=== PATIENT | female | born 1970 | race Caucasian/White ===

== ENCOUNTER → 2017-04-20 | Outpatient (CLI) | payer OTHER ==
[~2017-04-20] MED LIST: NAPR500T PO; SSD1CRE TOPICAL
[2017-04-20 14:04] LABS: AUTOMATED NEUTROPHIL # 4.4 TH/MM3 (1.8-7.7); BASOPHIL # 0.1 TH/MM3 (0-0.2); BASOPHIL % 1.5 % (0.0-2.0); EOSINOPHIL # 0.3 TH/MM3 (0-0.4); EOSINOPHIL % 3.3 % (0.0-4.0); HEMATOCRIT 36.3 % (35.0-46.0); HEMO FLAGS DIFF FINAL; LYMPH % 32.4 % (9.0-44.0); LYMPHOCYTE # 2.6 TH/MM3 (1.0-4.8); MEAN CELL VOLUME 86.4 FL (80.0-100.0); MEAN CORPUSCULAR HEMOGLOBIN 30.4 PG (27.0-34.0); MEAN CORPUSCULAR HGB CONC 35.2 % (32.0-36.0); MONO % 7.4 % (0.0-8.0); NEUT % 55.4 % (16.0-70.0); PLATELET COUNT 476 TH/MM3 (150-450); RED BLOOD COUNT 4.19 MIL/MM3 (4.00-5.30); RED CELL DISTRIBUTION WIDTH 12.7 % (11.6-17.2)
[2017-04-20 14:15] LABS: BACTERIA, URINE RARE /hpf; BLOOD, URINE NEG (NEG); COMMENT (UR) CULT NOT INDICATED; CULTURE IF INDICATED CULT NOT INDICATED; GLUCOSE,URINE NEG (NEG); KETONE, URINE NEG (NEG); MUCUS URINE FEW /lpf (OCC); NITRITE,URINE NEG (NEG); PH, URINE 6.5 (5.0-8.5); SQUAMOUS EPITHELIAL CELL URINE 3 /hpf (0-5); URINE COLOR LIGHT-YELLOW (YELLW/STRAW)
[2017-04-20 14:36] LABS: BETA HCG QUANT LESS THAN 1 MIU/ML (0-5)
--- NOTE | 2017-04-21 12:27 | EKG ---
Date Performed: 04/20/2017 Time Performed: 13:28:45 PTAGE: 46 years EKG: Sinus rhythm WITH SHORT ID INTERVAL BORDERLINE ECG NO PREVIOUS TRACING DOCTOR: Osmar Valdes Interpretating Date/Time 04/21/2017 12:26:27
== END ==
LOC: CPRE 12:56
PROVIDERS: ATTEND Obstetrics & Gynecology
DX: Z01.812 Encounter for preprocedural laboratory examination (principal); Z01.810 Encounter for preprocedural cardiovascular examination; N92.1 Excessive and frequent menstruation with irregular cycle; N94.6 Dysmenorrhea, unspecified; N85.00 Endometrial hyperplasia, unspecified; R94.31 Abnormal electrocardiogram [ECG] [EKG]; Z85.3 Personal history of malignant neoplasm of breast
CPT/HCPCS: 36415; 81001; 84702; 85025; 93005

== ENCOUNTER 2017-04-22 10:49 | Observation (INO) | payer OTHER ==
--- NOTE | 2017-04-21 17:39 | MH ---
cc: FELA SHAFFER DATE OF ADMISSION 04/22/2017 ADMITTING DIAGNOSIS: Menorrhagia and dysmenorrhea. HISTORY OF PRESENT ILLNESS The patient is a 46-year-old white female, para 3-0-1-3 who returned for annual visit on November of 2016 increasing menstrual flow and menstrual discomfort. She had mammography in January of 2017 that demonstrated suspicious masses on the right breast x2. These were biopsied, positive for breast carcinoma and she underwent bilateral mastectomy on 04/06/2017 with planned reconstruction. In view of the menorrhagia and dysmenorrhea she had a pelvic ultrasound on 04/02/2017 which showed endometrial thickening to 17 mm, slightly enlarged uterus, ovaries appeared normal. Initial biopsy was attempted on 04/03/2017 but could not be done due to cervical stenosis. She is now admitted for surgical evaluation. PAST HISTORY Previous surgery: 1. She has a LEEP procedure for ALEX II in 1995 and follow up has been normal. 2. She had 1998 for failure to progress OP. Repeat in . She had a spontaneous 2003 at 7 weeks. No dilation and curettage required. 4. She had a third and final section in 2004. MEDICATIONS Include vitamins. ALLERGIES NONE. TRANSFUSIONS None. SOCIAL HISTORY She is . She is a long-term schoolteacher. Alcohol, tobacco and drugs are none. FAMILY HISTORY Noncontributory. PHYSICAL EXAMINATION GENERAL: This is a well-nourished, well-developed white female. VITAL SIGNS: Stable. HEENT: Normal. CHEST: Clear. HEART: Regular rate. BREASTS: Surgically absent. ABDOMEN: Benign. PELVIC: Normal external genitalia and Bartholin's, urethral, [place]'s. Vagina is normal. Cervix is normal. Uterus normal size. Adnexal nonpalpable. ASSESSMENT As above. PLAN She is now admitted for dilation and curettage, frozen section with planned laparoscopy, probable LASH bilateral salpingo-oophorectomy. While in the office I explained the procedures, the risks and benefits and complications. The patient would like to proceed. MD SELENA Crowell/DAVID /5:11 PM /5:29 PM
[~2017-04-22] VITALS: Ht 165.1 cm; Wt 67.7 kg
[~2017-04-22 10:49] MED LIST changes: -NAPR500T PO
[2017-04-22] MEDS ORDERED: NAPR500T PO (11:37)
[2017-04-22] MEDS ORDERED: ceFAZolin INJ 1,000 MG VIAL ONE (11:39)
[2017-04-22 11:40] VITALS: BP 110/69; PULSE 70; RESP 16; TEMP 98.7; O2SAT 98
[2017-04-22] MEDS ORDERED: SODIUM CHLORIDE 0.9% INJ 100 ML ONE (11:40)
[2017-04-22] MEDS ORDERED: ACETAMINOPHEN 1000 MG/100 ML VIAL IV ONE (11:46)
[2017-04-22] MEDS ORDERED: CHLORHEXIDINE GLUCONATE 2 % 1 PACK (2 CLOTHS) TOPICAL PRN (12:30)
[2017-04-22] MEDS ORDERED: INSULIN HUMAN REGULAR 1,000 UNITS/10 ML VIAL SQ PRN (12:30)
[2017-04-22] MEDS ORDERED: ACETAMINOPHEN 1000 MG/100 ML VIAL IV SCH (12:30)
[2017-04-22] MEDS ORDERED: SODIUM CHLORID 0.9% 500 ML IV PRN (12:30)
[2017-04-22] MEDS ORDERED: LACTATED RINGER'S 1000 ML IV PRN (12:30)
[2017-04-22] MEDS ORDERED: METOPROLOL TARTRATE 25 MG TAB PO PRN (12:30)
[2017-04-22] MEDS ORDERED: POVIDONE IODINE 5% (ANTISEPSIS KIT) 4 APPLICATIONS EACH NARE PRN (12:30)
[2017-04-22] MEDS ORDERED: DEXAMETHASONE SOD PHOS 4 MG/ML VIAL ONE (12:42)
[2017-04-22] MEDS ORDERED: MIDAZOLAM HCL 2 MG/2 ML VIAL ONE (12:42)
[2017-04-22] MEDS ORDERED: FAMOTIDINE 20 MG/2 ML VIAL ONE (12:42)
[2017-04-22] MEDS ORDERED: ceFAZolin 2 GM PREMIX 50 ML IV SCH (12:45)
[2017-04-22] MEDS ORDERED: PROPOFOL 200 MG/20 ML AMP IV ONE (12:45)
[2017-04-22] MEDS ORDERED: LACTATED RINGER'S 1000 ML INJ 1,000 ML IV ONE (12:45)
[2017-04-22] MEDS ORDERED: ONDANSETRON HCL 4 MG/2 ML VIAL IV PUSH ONE (12:45)
[2017-04-22] MEDS ORDERED: KETOROLAC TROMETHAMINE 60 MG/2 ML (IM) VIAL IM ONE (12:45)
[2017-04-22] MEDS ORDERED: NEOSTIGMINE 3 MG/3 ML SYR IV ONE (12:45)
[2017-04-22] MEDS ORDERED: SODIUM CHLORIDE 0.9% FLUSH 5 ML FLUSH FLUSH PRN (14:30)
[2017-04-22] MEDS ORDERED: PROMETHAZINE HCL 25 MG TAB PO PRN (14:30)
[2017-04-22] MEDS ORDERED: PROMETHAZINE INJ 25 MG/ML VIAL IM PRN (14:30)
[2017-04-22] MEDS ORDERED: HYDROmorphone HCL PF 1 MG/ML VIAL IV PRN (14:30)
[2017-04-22] MEDS ORDERED: ONDANSETRON ODT 4 MG TAB PO PRN (14:30)
[2017-04-22] MEDS ORDERED: DO NOT ADM ANY ANTICOAGULANT DRUGS PRN (14:50)
[2017-04-22] MEDS ORDERED: fentaNYL CITRATE 250 MCG/5 ML AMP ONE (14:57)
[2017-04-22] MEDS ORDERED: diphenhydrAMINE HCL 25 MG CAP PO PRN (15:00)
[2017-04-22] MEDS ORDERED: ZOLPIDEM TARTRATE 5 MG TAB PO PRN (15:00)
[2017-04-22] MEDS: D5-1/2 NS + KCL 20 MEQ INJ 1,000 ML IV SCH (15:00)
[2017-04-22] MEDS ORDERED: ONDANSETRON HCL 4 MG/2 ML VIAL IV PRN (15:00)
[2017-04-22] MEDS: KETOROLAC TROMETHAMINE 30 MG/ML (IVP) VIAL IVP SCH ×2 (15:00→20:17)
[2017-04-22] MEDS ORDERED: *morphine SULFATE 8 MG/ML PERIprocedure ONLY ONE ×2 (15:00→15:11)
[2017-04-22] MEDS ORDERED: *MEPERIDINE 25 MG INJ VIAL PERIprocedural Use ONLY ONE (15:23)
[2017-04-22 16:36] VITALS: BP 122/67; PULSE 62; RESP 18; TEMP 98.3; O2SAT 99
[2017-04-22 17:53] LABS: HEMATOCRIT 36.2 % (35.0-46.0); REVIEW FLAG FINAL
[2017-04-22] MEDS: ACETAMINOPHEN 1000 MG/100 ML VIAL IV SCH ×2 (18:32→23:20)
[2017-04-22] MEDS: DOCUSATE SODIUM 100 MG CAP PO SCH (18:32)
[2017-04-22 20:00] VITALS: BP 107/68; PULSE 73; RESP 16; TEMP 97.3; O2SAT 96
[2017-04-22] MEDS: SODIUM CHLORIDE 0.9% FLUSH 5 ML FLUSH FLUSH SCH (20:14)
[2017-04-22] MEDS: SILVER SULFADIAZINE 1% CR 50 GM JAR TOPICAL SCH (20:24)
[2017-04-23] VITALS: BP 108/61; PULSE 78; RESP 16; TEMP 97.5; O2SAT 96
[2017-04-23] MEDS: D5-1/2 NS + KCL 20 MEQ INJ 1,000 ML IV SCH (02:28)
[2017-04-23] MEDS: KETOROLAC TROMETHAMINE 30 MG/ML (IVP) VIAL IVP SCH ×2 (03:40→08:22)
[2017-04-23] MEDS: DOCUSATE SODIUM 100 MG CAP PO SCH (03:41)
[2017-04-23 04:00] VITALS: BP 97/56; PULSE 71; RESP 16; TEMP 97.7; O2SAT 95
[2017-04-23 07:11] LABS: AUTOMATED NEUTROPHIL # 9.2 TH/MM3 (1.8-7.7); BASOPHIL % 0.3 % (0.0-2.0); EOSINOPHIL # 0.3 TH/MM3 (0-0.4); EOSINOPHIL % 2.4 % (0.0-4.0); HEMATOCRIT 31.7 % (35.0-46.0); HEMO FLAGS DIFF FINAL; LYMPH % 16.5 % (9.0-44.0); MEAN CELL VOLUME 86.6 FL (80.0-100.0); MEAN CORPUSCULAR HGB CONC 34.7 % (32.0-36.0); MONO % 6.1 % (0.0-8.0); NEUT % 74.7 % (16.0-70.0); PLATELET COUNT 385 TH/MM3 (150-450); RED BLOOD COUNT 3.66 MIL/MM3 (4.00-5.30); RED CELL DISTRIBUTION WIDTH 12.4 % (11.6-17.2); WHITE BLOOD COUNT 12.3 TH/MM3 (4.0-11.0)
[2017-04-23 07:38] LABS: BICARBONATE 23.3 MEQ/L (21.0-32.0)
[2017-04-23 08:00] VITALS: BP 101/59; PULSE 60; RESP 16; TEMP 97.3; O2SAT 97
[2017-04-23] MEDS: ACETAMINOPHEN 1000 MG/100 ML VIAL IV SCH (08:23)
[2017-04-23] MEDS: SODIUM CHLORIDE 0.9% FLUSH 5 ML FLUSH FLUSH SCH (08:30)
[2017-04-23] MEDS: SILVER SULFADIAZINE 1% CR 50 GM JAR TOPICAL SCH (08:30)
[2017-04-23 10:28] VITALS: O2SAT 97
[2017-04-23 12:00] VITALS: BP_SYST 97; BP_SYST 98; BP_DIAS 59; PULSE 67; RESP 16; TEMP 98.2; O2SAT 99
--- NOTE | 2017-04-23 13:21 | HHI.DCPOC ---
Discharge Care Plan Report Symptoms to Your Doctor -Temperature above 100.5 degrees -Redness, of incision or excessive or foul smelling drainage -Unusual pain or calf pain -Increased vaginal bleeding -Painful or difficulty urinating -Feelings of extreme sadness or anxiety after 2 weeks Goals to Promote Your Health * To prevent worsening of your condition and complications * To maintain your health at the optimal level Directions to Meet Your Goals Take your medications as prescribed Follow your dietary instruction Follow activity as directed Ensure plenty of rest for recovery Drink fluids for hydration Keep your appointments as scheduled Take your immunizations and boosters as scheduled If your symptoms worsen call your PCP, if no PCP go to Urgent Care Center or Emergency Room Smoking is Dangerous to Your Health. Avoid second hand smoke Call the 24-hour crisis hotline for domestic abuse at Issa Wheeler MD Apr 23, 2017 13:21
--- NOTE | 2017-04-24 09:51 | MP ---
cc: FELA SHAFFER M.D. DATE OF SURGERY 04/22/2017 PREOPERATIVE DIAGNOSIS Menorrhagia, dysmenorrhea POSTOPERATIVE DIAGNOSIS Menorrhagia, dysmenorrhea with fibroids. PROCEDURE D&C, frozen section, followed by a LASH/BSO. ANESTHESIA General ET SURGEON Fela Shaffer MD DECORATOR CONSULTANT Karli Chaves ESTIMATED BLOOD LOSS For the procedure, about 200 cc FLUIDS One liter crystalloid OBJECTIVE FINDINGS Following the induction of adequate general endotracheal anesthesia, the patient was prepped and draped supine on the operating table, dorsal supine position in the usual sterile fashion with the bladder being drained via Colby catheterization. Exam under anesthesia revealed an upper limits normal size anterior uterus. No adnexal masses. A heavy weighted speculum was placed in the posterior fornix of the vagina. The anterior lip of the cervix grasped with a single-toothed tenaculum. The cervix and uterus sounded to 9 cm. The cervix was then dilated with a #18 Hanks dilator. Endocervical curettings were obtained for permanent study, endometrium for frozen section. The tenaculum site sutured with 2-0 chromic for hemostasis and the vaginal instruments removed. The nuclear operator's gloves were changed. The abdomen was opened through a 3-cm curving infraumbilical incision using a knife to cut down through skin to the fascia. Fascia opened transversely and the peritoneum opened sharply without incident. Palpation was normal. The mini GelPort was placed. Laparoscope was inserted and a 5 port placed in the left lower quadrants. Uterus is about 10/12 weeks' size with fibroids, normal tubes, normal ovaries, normal cul-de-sacs, normal liver edge. Working first on the left, the harmonic scalpel was used to take the left ovarian vessels, left round ligament, left broad ligament, left-side of the bladder flap and left uterine vessels, the same on the right. The harmonic scalpel now used to amputate the fundus from the cervix. A pouch inserted to extract the pouch with the uterus, tubes and ovaries. Irrigation was performed. Bleeding on the right side of the cervix was controlled with the harmonic scalpel. Low pressure tests were done. There was no bleeding. Ureters were inspected. Good peristalsis bilateral. Low pressure test done, there was no bleeding. The operative site was now closed with Evicel, the GelPort removed and the peritoneum sutured with a running 2-0 Vicryl, the fascia with a running locking stitch of 0 Vicryl corner to midline and tied, subcu with running 3-0 Vicryl and the skin with a running subcuticular 3-0 Monocryl. The scope was now reinserted through the lower ports used to inspect the GelPort site is well closed. Pelvis was inspected. There was no bleeding. Scope was removed. Gas was allowed to escape. Small ports removed and sutured with 3-0 Monocryl. Dermabond applied. All counts correct and the patient was awakened and taken to the Recovery Room in good condition. MD SELENA Crowell/ALLYSSA /2:29 PM /9:38 AM
== END 2017-04-23 14:01 | disposition home or self-care (01) ==
LOC: HSDC 10:49 → HSDI 14:27 → HOCA 16:14
PROVIDERS: ADMIT Obstetrics & Gynecology; ATTEND Obstetrics & Gynecology
PROC: 0UT74ZZ Resection of Bilateral Fallopian Tubes, Percutaneous Endoscopic Approach (ICD-10-PCS; 2017-04-22)
PROC: 0UT94ZZ Resection of Uterus, Percutaneous Endoscopic Approach (ICD-10-PCS; principal; 2017-04-22 12:46)
PROC: 0UT24ZZ Resection of Bilateral Ovaries, Percutaneous Endoscopic Approach (ICD-10-PCS; 2017-04-22 12:46)
DX: N80.0 Endometriosis of uterus (principal); D25.2 Subserosal leiomyoma of uterus; N83.8 Other noninflammatory disorders of ovary, fallopian tube and broad ligament; N83.01 Follicular cyst of right ovary; N84.0 Polyp of corpus uteri
CPT/HCPCS: 00840; 58542; 80048; 85014; 85018; 85025; 88305; 88307; 88331; G0378; J0131; J0690; J1100; J1885; J2175; J2250; J2270; J2405; J2710; J3010; J3480; J7120